=== PATIENT | female | born 2000 | race Caucasian/White ===

== ENCOUNTER 2024-07-26 06:38 | Emergency (ER) | payer BC, SELFPAY ==
[2024-07-26 06:44] VITALS: BP 122/99; PULSE 111; RESP 16; TEMP 36.6; O2SAT 98
--- NOTE | 2024-07-26 06:50 | ED.GENADULT ---
HPI - General Adult General Chief complaint: Dental/Oral/Mouth Injury/Pain Stated complaint: c/o abscess tooth, facial swelling Time Seen by Provider: 07/26/24 06:50 History of Present Illness HPI narrative: Patient is a 24-year-old woman who is up-to-date on her tetanus shot who comes in today with a swelling of the gingiva of the left upper side of her mouth. She has a known history of dental caries and has had dental infections in the past. She has no systemic symptoms such as fevers chills chest pain shortness a breath difficulty with her airway nausea or vomiting. The pain and swelling is localized to the left upper plate. No bleeding or discharge noted. Related Data Home Medications ?Medication ?Instructions ?Recorded ?Confirmed No Known Home Medications 07/26/24 07/26/24 Allergies Allergy/AdvReac Type Severity Reaction Status Date / Time gabapentin Allergy Unknown Verified 06/11/23 13:27 Review of Systems Status of ROS: Reports: 10 or more systems reviewed and unremarkable except as noted in History and below PFSH PFS Social History Non-prescribed substance use: denies use Exam Narrative: Exam Narrative: EXAM GENERAL: Patient appears comfortable. Significant swelling and poor dentition on the left upper plate. EYES: No scleral icterus. LYMPH: No supraclavicular or cervical lymphadenopathy. SKIN: Visible skin seen during exam normal or with benign process only. EXT: No dependent lower extremity pedal edema. HEART: Regular rate and rhythm with no murmurs, rubs, or gallops. LUNGS: Clear to auscultation bilaterally with no crackles or wheezes. ABD: Soft, non tender, non distended. PSYCH: Good eye contact, speech is not pressured. Const: Vital Signs, click to edit/add: Vital Signs - 24 hr 07/26/24 06:44 Temperature 98 F Pulse Rate [Pulse Oximeter] 111 H Respiratory Rate 16 Blood Pressure [Ri ght Upper Arm] 122/99 H Pulse Oximetry 98 Oxygen Delivery Me thod Room Air Course Course ED Course: Patient seen and examined. Vital Signs Vital signs: Initial Vital Signs Temperature 98 F 07/26/24 06:44 Temperature Source Temporal Artery Scan 07/26/24 06:44 Pulse Rate 111 H 07/26/24 06:44 Respiratory Rate 16 07/26/24 06:44 Blood Pressure 122/99 H 07/26/24 06:44 Blood Pressure Mean 106 H 07/26/24 06:44 Blood Pressure Position Sitting 07/26/24 06:44 Pulse Oximetry 98 07/26/24 06:44 Oxygen Delivery Method Room Air 07/26/24 06:44 Vital Signs Temperature 98 F 07/26/24 06:44 Pulse Rate 111 H 07/26/24 06:44 Respiratory Rate 16 07/26/24 06:44 Blood Pressure 122/99 H 07/26/24 06:44 Pulse Oximetry 98 07/26/24 06:44 Oxygen Delivery Method Room Air 07/26/24 06:44 Temperature 98 F 07/26/24 06:44 Pulse Rate 111 H 07/26/24 06:44 Respiratory Rate 16 07/26/24 06:44 Blood Pressure 122/99 H 07/26/24 06:44 Pulse Oximetry 98 07/26/24 06:44 Oxygen Delivery Method Room Air 07/26/24 06:44 Medical Decision Making [facility] Narrative Medical decision making narrative: Patient is a 24-year-old woman up-to-date on her tetanus shot to comes in today with worsening dental pain and gingival swelling. No other findings on my exam. At this time I did treated with amoxicillin and dental follow-up. Differential diagnosis includes but not limited to dental caries dental abscess infection sinusitis. Discharge Plan Discharge Clinical Impression: Dental abscess Patient Disposition: Home, Self-Care Condition: Stable Instructions: Dental Abscess (ED) Additional Instructions: Amoxicillin as directed Tylenol Motrin Ice Follow-up with your dentist. Activity Level: No Restrictions Discharge Diet: Regular Prescriptions: No Action No Known Home Medications Follow Up/Referrals: Provider,Not a Local [Primary Care Provider] - Stand Alone Forms: RxCost Containmentth Info Instructions
== END 2024-07-26 07:05 | disposition home or self-care (01) ==
PROVIDERS: Emergency Provider Internal Medicine
DX: K04.7 Periapical abscess without sinus (principal)
CPT/HCPCS: 99283